=== PATIENT | female | born 1980 | race Two or more races ===

== ENCOUNTER 2019-02-27 19:55 | Observation (INO) | payer SELFPAY ==
[~2019-02-27] VITALS: Ht 154.9 cm; Wt 79.4 kg
[2019-02-28] MEDS ORDERED: PREN-96 PO (11:10)
== END 2019-02-27 22:40 | disposition home or self-care (01) | DRG 833 ==
LOC: LDRP 19:55
PROVIDERS: ADMIT Obstetrics & Gynecology; ATTEND Obstetrics & Gynecology
DX: O36.8130 Decreased fetal movements, third trimester, not applicable or unspecified (principal); O26.893 Other specified pregnancy related conditions, third trimester; R10.9 Unspecified abdominal pain; Z3A.38 38 weeks gestation of pregnancy
CPT/HCPCS: 59025; 76818; 81002; G0378